=== PATIENT | female | born 2005 | race Caucasian/White ===

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

== ENCOUNTER → 2023-01-07 18:09 | Outpatient (BNVA) | payer BC, MEDICAID, SELFPAY | PROVIDERS: PCP Family Medicine; Visit Provider Registered Nurse Neonatal Intensive Care | DX: J02.9 Acute pharyngitis, unspecified (principal) | CPT/HCPCS: 87880 ==

== ENCOUNTER 2024-07-15 18:19 | Emergency (ER) | payer MEDICAID, SELFPAY ==
[2024-07-15 18:27] VITALS: BP 116/79; PULSE 99; RESP 17; TEMP 36.7; O2SAT 98; BMI 29.7
[2024-07-15 20:31] LABS: Basophils # 0.1 10^3/uL (0.0-0.1); Basophils % 0.6 %; Eosinophils # 0.1 10^3/uL (0.0-0.8); Eosinophils % 1.1 %; Hematocrit 42.4 % (36-47); Lymphocytes # 3.5 10^3/uL (0.8-4.8); Lymphocytes % 38.9 %; Mean Corpuscular HGB Conc 33.3 g/dL (30-55); Mean Corpuscular Hemoglobin 29.3 pg (27-33); Mean Platelet Volume 9.1 fL (7.4-10.4); Monocytes # 0.6 10^3/uL (0.2-0.9); Monocytes % 6.4 %; Neutrophils % 52.8 %; Nucleated Red Blood Cells % 0 %; Platelet Count 284 10^3/cmm (157-399); Red Blood Count 4.82 10^6/uL (3.85-5.65); Red Cell Distribution Width 12.5 % (12.1-15.1); White Blood Count 9.08 10^3/uL (3.29-11.43)
[2024-07-15 20:52] LABS: Alanine Aminotransferase 11 U/L (0-33); Albumin Level 4.3 g/dL (3.5-5.2); Alkaline Phosphatase 97 U/L (35-105); Aspartate Amino Transferase 14 U/L (0-32); Blood Urea Nitrogen 10 mg/dL (6-20); Carbon Dioxide 24 mmol/L (22-29); Chloride 104 mmol/L (98-107); Creatinine Clr Calc Pharmacy 124.2732; Globulin 3.2 g/dL (1.3-4.6); Glomerular Filtration Rate 105.6 mL/min (90-130); Glucose 92 mg/dL (65-115); Lipase 28 U/L (13-60); Osmolality Calculated 285 mOsm/kg (285-295); Sodium 138 mmol/L (136-145); Total Bilirubin 0.3 mg/dL (0.15-1.2); Total Protein 7.5 g/dL (6.6-8.7)
== END 2024-07-15 22:14 | disposition left against medical advice (07) ==
PROVIDERS: General Practice; Emergency Provider Family Medicine
DX: Z53.21 Procedure and treatment not carried out due to patient leaving prior to being seen by health care provider (principal)
CPT/HCPCS: 36415; 80053; 83690; 85025

== ENCOUNTER 2024-07-16 08:34 | Emergency (ER) | payer MEDICAID, SELFPAY ==
[2024-07-16 08:39] VITALS: BP 131/78; PULSE 106; RESP 17; TEMP 36.5; O2SAT 99; BMI 28.3
--- NOTE | 2024-07-16 08:42 | ED_ITS ---
HPI - Abdominal Pain 2 General: Chief Complaint: Abdominal Pain Stated Complaint: abd pain Time Seen by Provider: 07/16/24 08:35 Source: patient Mode of arrival: ambulatory Limitations: no limitations History of Present Illness: 19-year-old female states that she had a bdominal pain yesterday she states she had ate ice cream cone started having severe right upper quadrant pain. States her pain was a 9 out of 10 last night has improved today her pain is currently a 2 out of 10 she had some nausea she denies any fevers denies any diarrhea Associated Symptoms: Denies chills, diarrhea, fever(s), nausea and vomiting Related Data Previous Rx's ?Medication ?Instructions ?Recorded cetirizine 10 mg tablet (All Day 10 mg PO DAILY PRN al susan 02/11/23 Allergy (cetirizine)) symptoms #30 tabs fluticasone propionate 50 2 spray intranasal DAILY #16 grams 02/11/23 mcg/actuation nasal spray,suspension (Flonase Allergy Relief) Allergies Allergy/AdvReac Type Severity Reaction Status Date / Time Penicillins Allergy Mild ALGY-Rash Verified 07/15/24 17:50 Review of Systems 2 Const: Denies: fever(s), chills, body aches or change in appetite ENMT: Denies: throat pain or dental pain Card: Denies: chest pain Resp: Denies: dyspnea GI: Reports: abdominal pain; Denies: nausea, vomiting or diarrhea Musc: Denies: neck pain or back pain Skin/Breast: Denies: rash Neuro: Denies: headache(s) PFSH ED 2 PFSH: Medical History (Updated 07/16/24 @ 09:12 by Chelsea Chapin MD) History of drainage of abscess left thigh Family History Denies family history of Anesthesia complication Bleeding disorder Social History Smoking and tobacco/nicotine status: current every day tobacco/nicotine user (vape) Second hand smoke exposure: Yes Alcohol intake: never Substance/Drug Use: never Physical Exam 2 Const: COMMON NORMALS: no acute distress, patient oriented x3 and healthy appearing HENMT: COMMON NORMALS: normocephalic and atraumatic HEAD & SCALP: n ormocephalic and atraumatic Eye: COMMON NORMALS: conjunctivae normal CONJUNCTIVA: Yes conjunctivae normal Neck/C-Spine: COMMON NORMALS: full ROM and supple Chest: COMMONS NORMALS: normal inspection of the chest Resp: COMMON NORMALS: normal respiratory effort Cardio: COMMON NORMALS: regular rate, regular rhythm and No murmurs present (Cardio) RATE: regular rate RHYTHM: regular rhythm GI: COMMON NORMALS: Normal to inspection, nondistended, normoactive bowel sounds present, Soft to palpation, non-tender and no masses PALPATION: Yes Soft to palpation Extremity: COMMON NORMALS: normal to inspection and full ROM Neuro: COMMON NORMALS: patient oriented x3, moves all extremities and no focal motor deficits Psych: COMMON NORMALS: mental status grossly normal, Normal thought process present and cooperative THOUGHT PROCESS: Normal thought process present Skin: COMMON NORMALS: no rashes or lesions noted and no wounds GENERAL SKIN EXAM: no rashes or lesions noted Course 2 Vital Signs: Vital signs: Vital Signs Temperature 97.7 F 07/16/24 08:39 Pulse Rate 106 H 07/16/24 08:39 Respiratory Rate 17 07/16/24 08:39 Blood Pressure 131/78 07/16/24 08:39 Pulse Oximetry 99 07/16/24 08:39 Oxygen Delivery Me thod Room Air 07/16/24 08:39 MDM - Abdominal Pain Medical Decision Making Patient presents with abdominal pain no pain currently exam is benign ultrasound showed no signs of cholecystitis we will get her follow-up with surgery she is return if worsening Medical Records I reviewed the patient's medical records. Lab Data I reviewed the patient's lab results. 07/16/24 08:42 07/16/24 08:42 Labs/Radiology: Laboratory Results WBC 6.89 10^3/uL (3.29-11.43) 07/16/24 08:42 RBC 4.70 10^6/uL (3.85-5.65) 07/16/24 08:42 Hgb 13.80 g/dL (11.27-16.99) 07/16/24 08:42 Hct 41.3 % (36-47) 07/16/24 08:42 MCV 87.9 fl (85-98) 07/16/24 08:42 MCH 29.4 pg (27-33) 07/16/24 08:42 MCHC 33.4 g/dL (30-55) 07/16/24 08:42 RDW 12.5 % (12.1-15.1) 07/16/24 08:42 Plt Count 262 10^3/cmm (157-399) 07/16/24 08:42 MPV 8.8 fL (7.4-10.4) 07/16/24 08:42 Neut % (Auto) 49.0 % 07/16/24 08:42 Lymph % (Auto) 40.5 % 07/16/24 08:42 [place] % (Auto) 6.7 % 07/16/24 08:42 Eos % (Auto) 2.9 % 07/16/24 08:42 Baso % (Auto) 0.6 % 07/16/24 08:42 Neut # (Auto) 3.38 10^3/uL (1.8-7.7) 07/16/24 08:42 Lymph # (Auto) 2.8 10^3/uL (0.8-4.8) 07/16/24 08:42 [place] # (Auto) 0.5 10^3/uL (0.2-0.9) 07/16/24 08:42 Eos # (Auto) 0.2 10^3/uL (0.0-0.8) 07/16/24 08:42 Baso # (Auto) 0.0 10^3/uL (0.0-0.1) 07/16/24 08:42 Nucleated RBC % (auto) 0 % 07/16/24 08:42 Nucleated RBCs # 0.0 /100WBC 07/16/24 08:42 Sodium 138 mmol/L (136-145) 07/16/24 08:42 Potassium 4.0 mmol/L (3.5-5.1) 07/16/24 08:42 Chloride 103 mmol/L (98-107) 07/16/24 08:42 Carbon Dioxide 25 mmol/L (22-29) 07/16/24 08:42 Anion Gap 14.0 (5-19) 07/16/24 08:42 BUN 11 mg/dL (6-20) 07/16/24 08:42 Creatinine 0.7 mg/dL (0.5-0.9) 07/16/24 08:42 GFR Calculation 105.6 mL/min (90-130) 07/16/24 08:42 Glucose 101 mg/dL (65-115) 07/16/24 08:42 Calculated Osmolality 286 mOsm/kg (285-295) 07/16/24 08:42 Calcium 9.1 mg/dL (8.5-10.5) 07/16/24 08:42 Total Bilirubin 0.6 mg/dL (0.15-1.2) 07/16/24 08:42 AST 16 U/L (0-32) 07/16/24 08:42 ALT 12 U/L (0-33) 07/16/24 08:42 Alkaline Phosphatase 98 U/L (35-105) 07/16/24 08:42 Total Protein 7.2 g/dL (6.6-8.7) 07/16/24 08:42 Albumin 4.1 g/dL (3.5-5.2) 07/16/24 08:42 Globulin 3.1 g/dL (1.3-4.6) 07/16/24 08:42 Lipase 28 U/L (13-60) 07/16/24 08:42 HCG, Qual Negative (Negative) 07/16/24 08:42 All radiology interpretation(s) finalized by discharge Discharge Plan Discharge Patient Disposition: Home Clinical Impression: Abdominal pain Condition: Stable Prescriptions: No Action fluticasone propionate [Flonase Allergy Relief] 50 mcg/actuation spray,suspension 2 spray intranasal DAILY Qty: 16 0RF Rx Instructions: administer into each nostril cetirizine [All Day Allergy (cetirizine)] 10 mg tablet 10 mg PO DAILY PRN (Reason: allergy symptoms) Qty: 30 0RF Discharge Orders: Discharge ED (Routine); Ordered 07/16/24 Ordered By: Chelsea Chapin Referrals: Jan Burgos MD [Physician, General Surgery] - 4-7 days Gisele Boggs MD [Primary Care Provider, Family Practice] Discharge Diet: Advance as tolerated Discharge Activity: Resume usual activity Patient Instructions: Abdominal Pain (ED) Print Language: Luxembourger Coding Level of Care Code ED Wireline Operator for Rafaelg Eleuterio
--- NOTE | 2024-07-16 08:43 | US_ITS ---
WS: [id number] RIGHT UPPER QUADRANT ULTRASOUND HISTORY: ruq pain COMPARISON: None available. Liver: 15.0 cm in length. Normal size liver and echogenicity. No bile duct dilatation or mass. Portal Vein: Normal hepatopetal flow with monophasic waveform. Gallbladder: Normally distended gallbladder with no stones or wall thickening. CBD: 0.2 cm Pancreas: Normal size and echogenicity. Right kidney: 10.1 cm in length. Normal size and echogenicity. No hydronephrosis or mass. Aorta and IVC: Unremarkable abdominal aorta and IVC. No ascites. US/US gall bladder [id number] IMPRESSION: Normal right upper quadrant ultrasound.
[2024-07-16 08:49] LABS: Basophils % 0.6 %; Eosinophils # 0.2 10^3/uL (0.0-0.8); Eosinophils % 2.9 %; Hematocrit 41.3 % (36-47); Lymphocytes # 2.8 10^3/uL (0.8-4.8); Lymphocytes % 40.5 %; Mean Corpuscular HGB Conc 33.4 g/dL (30-55); Mean Corpuscular Hemoglobin 29.4 pg (27-33); Mean Corpuscular Volume 87.9 fl (85-98); Mean Platelet Volume 8.8 fL (7.4-10.4); Monocytes # 0.5 10^3/uL (0.2-0.9); Monocytes % 6.7 %; Neutrophils # 3.38 10^3/uL (1.8-7.7); Nucleated Red Blood Cells % 0 %; Platelet Count 262 10^3/cmm (157-399); Red Cell Distribution Width 12.5 % (12.1-15.1); White Blood Count 6.89 10^3/uL (3.29-11.43)
[2024-07-16 09:10] LABS: Alanine Aminotransferase 12 U/L (0-33); Albumin Level 4.1 g/dL (3.5-5.2); Alkaline Phosphatase 98 U/L (35-105); Aspartate Amino Transferase 16 U/L (0-32); Blood Urea Nitrogen 11 mg/dL (6-20); Calcium 9.1 mg/dL (8.5-10.5); Carbon Dioxide 25 mmol/L (22-29); Chloride 103 mmol/L (98-107); Creatinine Clr Calc Pharmacy 121.3599; Globulin 3.1 g/dL (1.3-4.6); Glomerular Filtration Rate 105.6 mL/min (90-130); Glucose 101 mg/dL (65-115); Lipase 28 U/L (13-60); Osmolality Calculated 286 mOsm/kg (285-295); Sodium 138 mmol/L (136-145); Total Bilirubin 0.6 mg/dL (0.15-1.2); Total Protein 7.2 g/dL (6.6-8.7)
[2024-07-16 09:11] LABS: HCG, Serum Qual Negative (Negative)
[2024-07-16 09:44] VITALS: BP 116/68; PULSE 95; O2SAT 99
--- NOTE | 2024-07-19 12:38 | PC.NURSE ---
Sent referral to general surgery.
== END 2024-07-16 09:45 | disposition home or self-care (01) ==
PROVIDERS: Emergency Provider Emergency Medicine; PCP Family Medicine
DX: R10.11 Right upper quadrant pain (principal)
CPT/HCPCS: 36415; 76705; 80053; 83690; 84703; 85025; 99284